=== PATIENT | male | born 1960 ===

== ENCOUNTER 2017-08-27 02:12 | Emergency (ER) | payer OTHER ==
[~2017-08-27] VITALS: Ht 185.4 cm; Wt 98.4 kg
[2017-08-27 02:18] VITALS: Ht 185.4 cm; Wt 98.4 kg
[2017-08-27 05:55] LABS: BASOPHIL % 0.4 % (0-2); PLATELET COUNT 255 x10^3mcL (130-400); RED CELL DISTRIBUTION WIDTH 12.8 % (11.5-14.5)
[2017-08-27 06:06] LABS: CALCIUM 9.2 mg/dL (8.5-10.1); CARBON DIOXIDE 24.4 mmol/L (21-32); CHLORIDE SERUM 99 mmol/L (98-107); CREATININE SERUM 0.8 mg/dL (0.7-1.3); GFR1 > 60 mL/min; GLUCOSE SERUM 126 mg/dL (74-106); POTASSIUM SERUM 3.8 mmol/L (3.5-5.1); SODIUM SERUM 136 mmol/L (136-145)
[2017-08-27 06:10] LABS: AMPHETAMINE QUAL UR NONE DETECTED (NEG <=1000)
[2017-08-27 06:11] LABS: ALBUMIN 3.5 g/dL (3.4-5.0); ALKALINE PHOSPHATASE 84 U/L (46-116); ALT/SGPT 23 U/L (16-63); AST/SGOT 11 U/L (15-37); BILIRUBIN TOTAL 0.3 mg/dL (0.20-1.00); TOTAL PROTEIN, SERUM 7.9 g/dL (6.4-8.2)
[2017-08-27 07:24] VITALS: BP 126/81
== END 2017-08-27 07:24 | disposition home or self-care (01) ==
LOC: ED 02:12
PROVIDERS: Emergency Medicine
DX: J45.901 Unspecified asthma with (acute) exacerbation (principal); I10 Essential (primary) hypertension; E11.9 Type 2 diabetes mellitus without complications; Z87.891 Personal history of nicotine dependence
CPT/HCPCS: 83880; 87804; G0480; J2930; J7620

== ENCOUNTER 2018-06-05 20:16 | Inpatient (IN) | payer OTHER ==
[~2018-06-05] VITALS: Ht 185.4 cm; Wt 102.5 kg
[2018-06-05] MEDS ORDERED: ZESTRIL20 MG PO (23:08)
[2018-06-05] MEDS ORDERED: METFORMIN HYDR500 M1 PO (23:08)
[2018-06-05] MEDS ORDERED: PROAIR HFA8.5 GM (23:09)
[2018-06-05 23:35] LABS: CALCIUM 8.8 mg/dL (8.5-10.1); CARBON DIOXIDE 24.8 mmol/L (21-32); CHLORIDE SERUM 103 mmol/L (98-107); CREATININE SERUM 0.8 mg/dL (0.7-1.3); GFR1 > 60 mL/min; GLUCOSE SERUM 111 mg/dL (74-106); POTASSIUM SERUM 3.7 mmol/L (3.5-5.1); SODIUM SERUM 139 mmol/L (136-145)
[2018-06-05 23:36] LABS: ALKALINE PHOSPHATASE 75 U/L (46-116); ALT/SGPT 31 U/L (16-63); AST/SGOT 21 U/L (15-37); TOTAL PROTEIN, SERUM 8.3 g/dL (6.4-8.2)
[2018-06-05 23:53] LABS: BASOPHIL % 0.2 % (0-2); PLATELET COUNT 291 x10^3mcL (130-400)
[2018-06-06 00:54] VITALS: BP 129/82
[2018-06-06 00:58] VITALS: Ht 185.4 cm; Wt 102.5 kg
[2018-06-06 01:07] LABS: CHOLESTEROL/HDL RATIO 3.7; MAGNESIUM 2.2 mg/dL (1.8-2.4); PHOSPHOROUS 3.6 mg/dL (2.5-4.9)
[2018-06-06 01:11] LABS: T3 TOTAL 0.98 ng/mL
[2018-06-06 01:28] LABS: FREE T4 0.88 ng/dL (0.76-1.46); T4(THYROXINE) 5.7 ug/dL (4.7-13.3)
[2018-06-06 02:48] LABS: UA SPECIFIC GRAVITY >=1.030 (1.005-1.035); microscopic required? YES; urine erythrocyte NEGATIVE (NEGATIVE)
[2018-06-06 02:57] LABS: AMPHETAMINE QUAL UR NONE DETECTED (See below)
[2018-06-06 05:17] VITALS: BP 159/100
== END 2018-06-06 08:30 | disposition left against medical advice (07) | DRG 254 ==
LOC: ED 20:16 → MU 23:44
PROVIDERS: Emergency Medicine; Family Medicine
DX: T18.128A Food in esophagus causing other injury, initial encounter (principal); N17.0 Acute kidney failure with tubular necrosis; E11.65 Type 2 diabetes mellitus with hyperglycemia; R80.9 Proteinuria, unspecified; F17.210 Nicotine dependence, cigarettes, uncomplicated; R13.10 Dysphagia, unspecified; D72.829 Elevated white blood cell count, unspecified; J45.909 Unspecified asthma, uncomplicated; I10 Essential (primary) hypertension; F12.10 Cannabis abuse, uncomplicated; F11.10 Opioid abuse, uncomplicated; F19.10 Other psychoactive substance abuse, uncomplicated; X58.XXXA Exposure to other specified factors, initial encounter; Y92.018 Other place in single-family (private) house as the place of occurrence of the external cause; Y93.89 Activity, other specified; Z79.84 Long term (current) use of oral hypoglycemic drugs; Z79.899 Other long term (current) drug therapy
CPT/HCPCS: 82962; 83880; 84439; J1610; J7030; J7620; Q0092

== ENCOUNTER 2020-03-16 11:53 | Emergency (ER) | payer OTHER ==
[~2020-03-16] VITALS: Ht 185.4 cm; Wt 100.2 kg
[~2020-03-16 11:53] MED LIST: METFORMIN HYDR500 M1 PO; PROAIR HFA8.5 GM; ZESTRIL20 MG PO
[2020-03-16 12:01] VITALS: Ht 185.4 cm; Wt 100.2 kg
[2020-03-16 13:13] LABS: CALCIUM 9.6 mg/dL (8.5-10.1); CARBON DIOXIDE 28.3 mmol/L (21-32); CHLORIDE SERUM 99 mmol/L (98-107); CREATININE SERUM 0.9 mg/dL (0.7-1.3); GFR1 > 60 mL/min; GLUCOSE SERUM 393 mg/dL (74-106); POTASSIUM SERUM 4.3 mmol/L (3.5-5.1); SODIUM SERUM 132 mmol/L (136-145)
[2020-03-16 13:18] LABS: ALBUMIN 3.7 g/dL (3.4-5.0); ALKALINE PHOSPHATASE 136 U/L (46-116); ALT/SGPT 52 U/L (16-63); AST/SGOT 27 U/L (15-37); BILIRUBIN TOTAL 0.62 mg/dL (0.20-1.00); TOTAL PROTEIN, SERUM 7.8 g/dL (6.4-8.2)
[2020-03-16 13:27] LABS: BASOPHIL % 0.8 % (0-2); PLATELET COUNT 250 x10^3mcL (130-400); RED CELL DISTRIBUTION WIDTH 12.1 % (11.5-14.5)
[2020-03-16 17:18] VITALS: BP 138/74
== END 2020-03-16 15:35 | disposition home or self-care (01) ==
LOC: ED 11:53
PROVIDERS: Emergency Medicine
DX: A69.1 Other Vincent's infections (principal); B37.0 Candidal stomatitis; J45.909 Unspecified asthma, uncomplicated; I10 Essential (primary) hypertension; E11.9 Type 2 diabetes mellitus without complications
CPT/HCPCS: 82962; 87491; 87591; J0696; J7030; J7060